=== PATIENT | female | born 1940 | race Caucasian/White ===

== ENCOUNTER 2016-07-10 18:41 | Inpatient (IN) | payer MEDICARE, OTHER ==
[~2016-07-10] VITALS: Ht 154.9 cm; Wt 63.5 kg
[2016-07-10 20:57] VITALS: BP 129/61; RESP 20
[2016-07-10] MEDS ORDERED: IPRATROPIUM (NEB) 0.5 MG/2.5 ML AMP INH PRN (21:00)
[2016-07-10] MEDS ORDERED: HYDROCODONE/APAP (5/325) TAB PO PRN (22:00)
[2016-07-10] MEDS ORDERED: AL HYDROX/MG HYDROX/SIMETH 30 ML CUP PO PRN (22:00)
[2016-07-10] MEDS ORDERED: BISACODYL 10 MG SUPP PR PRN (22:00)
[2016-07-10] MEDS ORDERED: ONDANSETRON 4 MG INJ IV PRN (22:00)
[2016-07-10] MEDS: CARISOPRODOL 350 MG TAB PO PRN (22:29)
[2016-07-10] MEDS: ACETAMINOPHEN 325 MG TAB PO PRN (22:29)
[2016-07-10] MEDS ORDERED: NALOXONE (0.4 MG/ML) INJ IV PRN (22:30)
[2016-07-10] MEDS ORDERED: MAGNESIUM HYDROXIDE 30ML CUP PO PRN (22:30)
[2016-07-10] MEDS ORDERED: CEPASTAT LOZENGE MT PRN (22:30)
[2016-07-10] MEDS: ATORVASTATIN 20 MG TAB PO SCH (22:35)
[2016-07-10] MEDS: DOCUSATE SODIUM 100 MG CAP PO SCH (22:35)
[2016-07-10] MEDS: METOPROLOL (XL) 50 MG TAB PO SCH (22:36)
[2016-07-10] MEDS ORDERED: VALSARTAN 160 MG TAB PO PRN (23:00)
[2016-07-10] MEDS ORDERED: PHENOL 1.4% SOLN 180 ML BTL MT PRN (23:00)
[2016-07-10] MEDS ORDERED: SENNA TAB PO PRN (23:00)
[2016-07-11 01:34] LABS: ADD UMIC YES; URINE BILIRUBIN (Dip) NEGATIVE (NEGATIVE); URINE BLOOD (Dip) TRACE (NEGATIVE); URINE COLOR LT. YELLOW (YELLOW); URINE GLUCOSE (Dip) NEGATIVE (NEGATIVE); URINE KETONES (Dip) NEGATIVE (NEGATIVE); URINE LEUKOCYTE ESTERASE (Dip) NEGATIVE (NEGATIVE); URINE NITRITE (Dip) NEGATIVE (NEGATIVE); URINE TOTAL PROTEIN (Dip) NEGATIVE (NEGATIVE); URINE UROBILINOGEN (Dip) 0.2 E.U./dL (0.1-1.0)
[2016-07-11 02:08] LABS: BACTERIA,URINE OCCASIONAL; SQUAMOUS EPITHELIAL CELL,UR FEW; URINE RBCS 0-2 /HPF (0)
[2016-07-11] MEDS: PANTOPRAZOLE (EC) 40 MG TAB PO SCH (05:51)
[2016-07-11 05:55] VITALS: Ht 154.9 cm; Wt 63.5 kg
[2016-07-11 06:28] LABS: ADD SCAN DIFF NO
[2016-07-11 06:34] LABS: BASOPHILS % 0.4 % (0.0-2.0); EOSINOPHILS # 0.2 10^3/ul (0.0-0.5); EOSINOPHILS % 2.2 % (0.0-7.0); HEMATOCRIT 24.4 % (37.0-47.0); HEMOGLOBIN 7.9 g/dl (12.0-16.0); LYMPHOCYTES # 1.7 10^3/ul (0.8-2.9); LYMPHOCYTES % 21.7 % (15.0-51.0); MEAN CORPUSCULAR HGB CONC 32.4 g/dl (32.0-37.0); MEAN CORPUSCULAR VOLUME 95.7 fl (82.0-101.0); MEAN PLATELET VOLUME 9.9 fl (7.4-10.4); MONOCYTE # 0.9 10^3/ul (0.3-0.9); MONOCYTES % 11.2 % (0.0-11.0); NEUTROPHIL # 4.9 10^3/ul (1.6-7.5); NEUTROPHILS % 63.7 % (39.0-77.0); PLATELET COUNT 206 10^3/UL (140-415); RED BLOOD COUNT 2.55 10^6/ul (4.20-5.40); RED CELL DISTRIBUTION WIDTH 12.5 % (11.5-14.5); WHITE BLOOD COUNT 7.7 10^3/ul (4.8-10.8)
[2016-07-11 06:52] LABS: ALBUMIN 3.1 g/dl (3.3-4.9)
[2016-07-11 06:55] LABS: BILIRUBIN,INDIRECT 0.2 mg/dl (0-1.1); BILIRUBIN,TOTAL 0.2 mg/dl (0.2-1.3); CREATININE 0.94 mg/dl (0.44-1.00)
[2016-07-11 06:56] LABS: ALBUMIN/GLOBULIN RATIO 1.19; CALCIUM 8.6 mg/dl (8.4-10.2); TOTAL PROTEIN 5.7 g/dl (6.1-8.1)
[2016-07-11 07:56] VITALS: BP 122/59; RESP 18
[2016-07-11] MEDS: FERROUS SULFATE (EC) 325 MG TAB PO SCH (08:47)
[2016-07-11] MEDS: ACETAMINOPHEN 325 MG TAB PO PRN ×3 (08:47→20:34)
[2016-07-11] MEDS: DOCUSATE SODIUM 100 MG CAP PO SCH ×2 (08:47→20:34)
[2016-07-11] MEDS ORDERED: PSYLLIUM 28% PACKET PO SCH (09:00)
--- NOTE | 2016-07-11 09:25 | HP ---
DATE OF ADMISSION: 07/10/2016 CHIEF COMPLAINT: Status post laminectomy. HISTORY OF PRESENT ILLNESS: This is a 75-year-old female with a past medical history of hypertensio n, dyslipidemia, history of premature atrial contractions, history of spinal stenosis, who was admit nandini to undergo elective laminectomy and fusion of lumbar spine. The patient has a longstanding hist ory of back pain which has progressed over time. The patient's pain is known to be intractable with radiation to both legs, with claudication. The patient has had prior history of back surgery and h ardware placement. Patient, however, has failed conservative management. As a result she was seen by her outpatient physician, Dr. Dow, and was found to have significant spinal stenosis at L2-L3 a nd L3-L4. The patient also had epidural fibrosis. The patient underwent surgical laminectomy on at [facility] in [place]. The patient's postoperative course was compl icated with an episode of hypertension, supraventricular tachycardia, and premature atrial contracti ons. The patient was clinically managed and stabilized. The patient, however, suffered a decline i n functional mobility from premorbid status and as a result was transferred over to [facility] acute rehab for continued care. Upon my evaluation of the patient at this time, she is currently stable. Denies any fever, chills, nausea, vomiting. Patient complains of some mild leg pain, but otherwise no acute distress. PAST MEDICAL HISTORY: As stated above. History of hypertension, dyslipidemia, chronic back pain. PAST SURGICAL HISTORY: History of previous spinal surgery, status post laminectomy at L2-3. FAMILY HISTORY: No family history of kidney disease or heart disease. SOCIAL HISTORY: She does not do drugs. ALLERGIES: THE PATIENT IS ALLERGIC TO BLUE SEAFOOD. OUTPATIENT MEDICATIONS: Reviewed and reconciled. REVIEW OF SYSTEMS: A 14-point review of systems was conducted. Pertinent positives in HPI, otherwi se negative. PHYSICAL EXAMINATION: VITAL SIGNS: Blood pressure 120/59, respirations 19, pulse 101, temperature 98.1. HEENT: Head is normocephalic. NECK: Supple. HEART: Regular rate with positive PVCs. LUNGS: Show diminished breath sounds at base, otherwise clear. ABDOMEN: Soft, nontender to palpation, no rebound or guarding. EXTREMITIES: Negative for clubbing or cyanosis, no edema. DERMATOLOGIC: No rashes. MUSCULOSKELETAL: No joint effusions. NEUROLOGIC: No focal deficits. LABORATORY DATA: Shows a BMP within normal limits. Albumin 3.1, white count 7.7, hemoglobin 7.9, h ematocrit 24.4, and platelet count 206,000. Urinalysis is bland. ASSESSMENT AND PLAN: This is a 75-year-old female who presents with: 1. Spinal stenosis, status post laminectomy with spinal fusion at L2-L3, L3-L4. The patient is cur rently clinically stable. Plan at this point is to continue physical therapy, continue pain control . Will follow up with outpatient orthopedist. 2. Hypertension. Continue current blood pressure regimen. 3. History of paroxysmal atrial tachycardia. Continue metoprolol, monitor closely. Consider cardi ology evaluation. 4. Dyslipidemia. Continue statin therapy. 5. Pain syndrome. Continue current pain regimen. 6. Anemia with possible iron deficiency. The patient has hemoglobin of 7.9. Plan is to check an i leelee panel, ferritin level. Continue ferrous sulfate. There is no evidence of gastrointestinal blee d. We will monitor closely. No indication for blood transfusion at this time. 7. Gastrointestinal and deep venous thrombosis prophylaxis. Continue proton pump inhibitor and seq uential leg squeezers. Please note, I spent up to 25 minutes in mwns-ja-aiff time with this patient and discussing code johanna suazo. The patient is FULL CODE. Dictated By: LUCIAN BOLTON/ILIANA Conf#: [id number] DID#: [id number]
[2016-07-11 13:09] LABS: IRON 22 ug/dl (35-150)
--- NOTE | 2016-07-11 13:16 | CONS ---
DATE OF ADMISSION: 07/10/2016 DATE OF CONSULTATION: 07/11/2016 TYPE OF CONSULTATION: Rehabilitation post-admission physician evaluation REHABILITATION IMPAIRMENT CATEGORY: Lumbar spinal stenosis with spondylolisthesis and epidural fibr osis status post decompressive laminectomy. ACTIVE COMORBIDITIES: 1. Hypertension. 2. Episode of hypotension. 3. Acute pain syndrome. 4. Impairments in self-care and mobility. HISTORY OF PRESENT ILLNESS: The patient is a very pleasant 75-year-old female with a history of spi nal stenosis with spondylolisthesis an epidural fibrosis, who had been noting increasing back pain r adiating despite conservative measures. The patient does have a history of prior back surgery. Due to the fact the patient has failed conservative measures, the patient underwent decompressive sherri ectomy and fusion on 07/05/2016. The patient's hospital course has been notable for episode of hypo tension, supraventricular tachycardia, and significant impairments in self-care and mobility as comp ared to baseline. The patient has been cleared to [facility]. FUNCTIONAL HISTORY: Prior to recent events, she was independent in self-care tasks and mobility. C urrently, she requires minimal assist for self-care and mobility tasks. I have reviewed the preadmission screen and the patient's current functional status is consistent wi th the preadmission screen. SOCIAL HISTORY: The patient lives at home and hopes to return there upon discharge. PAST MEDICAL HISTORY: 1. Hypertension. 2. Hyperlipidemia. 3. History of previous back surgery. CURRENT MEDICATIONS: 1. Lipitor 20 mg p.o. at bedtime. 2. Colace 100 mg p.o. b.i.d. 3. Ferrous sulfate 325 p.o. daily. 4. Metoprolol 50 mg p.o. at bedtime. 5. Protonix 40 mg p.o. before meals. 6. [place] p.r.n. 7. Atrovent p.r.n. 8. Senokot p.r.n. 9. Soma p.r.n. ALLERGIES: NO KNOWN DRUG ALLERGIES. PHYSICAL EXAMINATION: VITAL SIGNS: The patient is currently afebrile with stable vital signs. HEENT: Extraocular motions are intact. Oropharynx clear. NECK: Supple. LUNGS: Clear anteriorly. CARDIAC: S1, S2. ABDOMEN: Soft, nontender, positive bowel sounds. NEUROLOGIC: She is awake, alert and oriented x3. She will follow simple 1-step commands. Cranial nerves are grossly intact. She has good strength in bilateral upper extremity and bilateral lower e xtremity. She does have some impairments in dynamic balance. PLAN: The patient has been admitted for comprehensive interdisciplinary acute rehab and is anticipa nandini to tolerate 3 hours of daily therapy in divided doses for at least 5/7 days a week. The treatme nt plan will include: 1. Physical therapy to focus on bed mobility, transfers, and household ambulation with the goal for patient to reach a modified independent level. 2. Occupational therapy to focus on hygiene, grooming, dressing, bathing, and toileting activities with goal of having patient reach a modified independent level. 3. Rehabilitation nursing for carryover of therapeutic interventions, the goal of continent of martha l and bladder, and the goal of pain adequately managed on oral medications. ESTIMATED LENGTH OF STAY: 7 days. DISPOSITION GOAL: Home. REHABILITATION BARRIER: Pain. INTERVENTION FOR BARRIER: Comprehensive interdisciplinary approach. I acknowledge that I performed a full physical examination on this patient within 24 hours of admiss ion, I believe the patient is a good candidate for comprehensive interdisciplinary rehab care and is anticipated to make reasonable goals in a reasonable period of time as outlined above. Dictated By: DANIELE PIEDRA/ILIANA Conf#: [id number] DID#: [id number]
[2016-07-11 13:19] LABS: TOTAL IRON BINDING CAPACITY 227 ug/dl (241-421)
[2016-07-11 19:16] VITALS: BP 111/56; RESP 20
[2016-07-11] MEDS: ATORVASTATIN 20 MG TAB PO SCH (20:34)
[2016-07-11] MEDS: CARISOPRODOL 350 MG TAB PO PRN (20:34)
[2016-07-11] MEDS: METOPROLOL (XL) 50 MG TAB PO SCH (20:35)
[2016-07-11] MEDS: PSYLLIUM 28% PACKET PO SCH (20:40)
[2016-07-12 03:31] VITALS: BP 135/64; PULSE 99
[2016-07-12] MEDS: PANTOPRAZOLE (EC) 40 MG TAB PO SCH (06:50)
[2016-07-12 07:27] VITALS: BP 121/57; RESP 18
[2016-07-12] MEDS: ACETAMINOPHEN 325 MG TAB PO PRN ×3 (08:34→20:34)
[2016-07-12] MEDS: FERROUS SULFATE (EC) 325 MG TAB PO SCH (08:34)
[2016-07-12] MEDS: DOCUSATE SODIUM 100 MG CAP PO SCH ×2 (08:34→20:34)
--- NOTE | 2016-07-12 09:34 | PN ---
DATE: 07/12/2016 SUBJECTIVE: The patient is stable, no acute events overnight. No fevers, chills, nausea, vomiting. OBJECTIVE: VITAL SIGNS: Blood pressure is 121/57, respirations 18, pulse 89, temperature 99.0. HEENT: Head is normocephalic. NECK: Supple. HEART: Regular rate. LUNGS: Show diminished breath sounds at the base, otherwise clear. ABDOMEN: Soft, nontender to palpation, no rebound or guarding. EXTREMITIES: Negative for clubbing, cyanosis, no edema. DERMATOLOGIC: No rashes. MUSCULOSKELETAL: No joint effusions. NEUROLOGIC: No change in exam. MEDICATIONS: The patient's medications have been reviewed. LABORATORY DATA: Currently pending. Iron panel shows iron saturations of 10%. ASSESSMENT AND PLAN: 1. Spinal stenosis status post laminectomy with spinal fusion, L2-L3. The patient is currently sta ble. Continue physical therapy, pain control. 2. Hypertension. Continue current blood pressure regimen. 3. History of paroxysmal atrial tachycardia. Continue metoprolol. 4. History of dyslipidemia. Continue statin therapy. 5. Anemia with iron deficiency. Continue ferrous sulfate. Hemoglobin levels have been stable. 6. Pain syndrome. Continue current pain regimen. 7. Gastrointestinal and deep venous thrombosis prophylaxis. Continue proton pump inhibitor and seq uential leg squeezers. Dictated By: LUCIAN BOLTON/ILIANA Conf#: [id number] DID#: [id number]
[2016-07-12 10:39] LABS: ADD SCAN DIFF NO
[2016-07-12 10:55] LABS: BASOPHILS % 0.4 % (0.0-2.0); EOSINOPHILS # 0.1 10^3/ul (0.0-0.5); EOSINOPHILS % 1.3 % (0.0-7.0); HEMATOCRIT 25.7 % (37.0-47.0); HEMOGLOBIN 8.6 g/dl (12.0-16.0); LYMPHOCYTES # 1.3 10^3/ul (0.8-2.9); LYMPHOCYTES % 11.8 % (15.0-51.0); MEAN CORPUSCULAR HEMOGLOBIN 32.1 pg (29.0-33.0); MEAN CORPUSCULAR HGB CONC 33.5 g/dl (32.0-37.0); MEAN CORPUSCULAR VOLUME 95.9 fl (82.0-101.0); MEAN PLATELET VOLUME 10.1 fl (7.4-10.4); MONOCYTE # 1.2 10^3/ul (0.3-0.9); MONOCYTES % 10.9 % (0.0-11.0); NEUTROPHILS % 74.6 % (39.0-77.0); PLATELET COUNT 284 10^3/UL (140-415); RED BLOOD COUNT 2.68 10^6/ul (4.20-5.40); RED CELL DISTRIBUTION WIDTH 12.7 % (11.5-14.5); WHITE BLOOD COUNT 10.7 10^3/ul (4.8-10.8)
--- NOTE | 2016-07-12 12:20 | CONS ---
Date/Time of Note Date/Time of Note DATE: 07/12/16 TIME: 12:20 Consult Date/Type/Reason Admit Date/Time Jul 10, 2016 at 20:34 Initial Consult Date Subjective Comfortable Objective pulm-cta sba ambulation Vital Signs Date Time Temp Pulse Resp B/P Pulse Ox O2 Delivery O2 Flow Rate FiO2 07/12/16 07:27 99.0 89 18 121/57 96 Intake and Output 07/11/16 07/11/16 07/12/16 15:00 23:00 07:00 Intake Total 720 ml 840 ml 600 ml Output Total 200 ml Balance 520 ml 840 ml 600 ml Results/Medications Result Diagram: 07/12/16 1010 07/11/16 0620 Results 24 hrs Laboratory Tests Test 07/12/16 10:10 Basophils # 0.0 Basophils % 0.4 Eosinophils # 0.1 Eosinophils % 1.3 Hematocrit 25.7 L Hemoglobin 8.6 L Lymphocytes # 1.3 Lymphocytes % 11.8 L Mean Corpuscular Hemoglobin 32.1 Mean Corpuscular Hemoglobin Concent 33.5 Mean Corpuscular Volume 95.9 Mean Platelet Volume 10.1 Monocytes # 1.2 H Monocytes % 10.9 Neutrophils # 8.0 H Neutrophils % 74.6 Nucleated Red Blood Cells # 0.0 Nucleated Red Blood Cells % 0.0 Platelet Count 284 # Red Blood Count 2.68 L Red Cell Distribution Width 12.7 White Blood Count 10.7 # Medications Current Medications Carisoprodol (Soma) 350 mg Q8H PRN PO PAIN Last administered on 07/11/16 20:34 ; Admin Dose 350 MG; Start 07/10/16 at 22:00 Acetaminophen/ Hydrocodone Bitart ([place] (5/325)) 1 tab Q3H PRN PO MODERATE PAIN; Start 07/10/16 at 22:00 Acetaminophen (Tylenol Tab) 650 mg QID PRN PO PAIN AND OR ELEVATED TEMP Last administered on 07/12/16 08:34; Admin Dose 650 MG; Start 07/10/16 at 22:00 Atorvastatin Calcium (Lipitor) 20 mg DAILY@21 PO Last administered on 07/11/16 20:34; Admin Dose 20 MG; Start 07/10/16 at 22:21 Docusate Sodium (Colace) 100 mg BID PO Last administered on 07/12/16 08:34; Admin Dose 100 MG; Start 07/10/16 at 22:21 Ferrous Sulfate (Ferrous Sulfate (Ec)) 325 mg DAILY PO Last administered on 07/12 08:34; Admin Dose 325 MG; Start 07/11/16 at 09:00 Metoprolol Succinate (Toprol Xl) 50 mg QHS PO Last administered on 07/11/16 20: 35; Admin Dose 50 MG; Start 07/10/16 at 22:22 Pantoprazole (Protonix Tab) 40 mg DAILY@06 PO Last administered on 07/12/16 06: 50; Admin Dose 40 MG; Start 07/11/16 at 06:00 Al Hydrox/Mg Hydrox/Simethicone (Mag-Al Plus) 30 ml Q6H PRN PO INDIGESTION/ HEARTBURN; Start 07/10/16 at 22:00 Phenol (Cepastat Lozenge) 1 lozenge Q2H PRN [place] SORE THROAT; Start 07/10/16 at 22 :30 Bisacodyl (Dulcolax Supp) 10 mg DAILY PRN [place] CONSTIPATION; Start 07/10/16 at 22: 00 Magnesium Hydroxide (Milk Of Mag) 30 ml QHS PRN PO CONSTIPATION; Start 07/10/16 at 22:30 Naloxone HCl (Narcan) 0.4 mg PRN PRN IV DECREASED REPIRATORY RATE; Start at 22:30 Ondansetron HCl (Zofran Inj) 4 mg Q4H PRN IV NAUSEA AND/OR VOMITING; Start 07/10 at 22:00 Phenol (Chloraseptic Throat [place]) 2 spray Q3H PRN [place] SORE THROAT; Start at 23:00 Senna (Senokot) 1 tab BID PRN PO CONSTIPATION; Start 07/10/16 at 23:00 Valsartan (Diovan) 160 mg DAILY PRN PO SBP > 140; Start 07/10/16 at 23:00 Psyllium Hydrophilic Mucilloid (Metamucil) 1 pkt QHS PO Last administered on 20:40; Admin Dose 1 PKT; Start 07/11/16 at 21:00 Assessment/Plan Additional Assessment/Plan rehab- Lumbar spinal stenosis with spondylolisthesis and epidural fibrosis status post decompressive laminectomy. Tolerating rehab well Hypertension. Episode of hypotension. Acute pain syndrome-improved DANIELE IBARRA MD Jul 12, 2016 12:20
[2016-07-12 20:25] VITALS: BP 126/58; RESP 18
[2016-07-12] MEDS: ATORVASTATIN 20 MG TAB PO SCH (20:34)
[2016-07-12] MEDS: CARISOPRODOL 350 MG TAB PO PRN (20:34)
[2016-07-12] MEDS: PSYLLIUM 28% PACKET PO SCH (20:34)
[2016-07-12] MEDS: METOPROLOL (XL) 50 MG TAB PO SCH (20:40)
[2016-07-13] MEDS: PANTOPRAZOLE (EC) 40 MG TAB PO SCH (06:50)
[2016-07-13] MEDS: DOCUSATE SODIUM 100 MG CAP PO SCH ×2 (09:02→20:11)
[2016-07-13] MEDS: ACETAMINOPHEN 325 MG TAB PO PRN ×3 (09:02→20:11)
[2016-07-13] MEDS: FERROUS SULFATE (EC) 325 MG TAB PO SCH (09:02)
--- NOTE | 2016-07-13 10:00 | PN ---
DATE: 07/13/2016 SUBJECTIVE: The patient is stable, no acute events overnight. No fevers, chills, nausea, vomiting. OBJECTIVE: VITAL SIGNS: Blood pressure 126/58, respirations 18, pulse 70, temperature 98.5. HEENT: Head is normocephalic. NECK: Supple. HEART: Regular rate. LUNGS: Show diminished breath sounds at the bases. ABDOMEN: Soft, nontender to palpation. No rebound or guarding. EXTREMITIES: Negative for clubbing, cyanosis. No edema. DERMATOLOGIC: No rashes. MUSCULOSKELETAL: No joint effusions. NEUROLOGIC: No change in exam. LABORATORY DATA: Shows a white count 10.7, hemoglobin 9.6, hematocrit 25.7, platelet count 284. Th e patient's urinalysis shows gram-negative rods of 10,000 to 20,000 colony-forming units. ASSESSMENT AND PLAN: 1. Spinal stenosis, status post laminectomy with fusion at L2 to L3. The patient is currently stab le. Continue physical therapy, pain control, continue supportive brace. 2. Hypertension. Continue current blood pressure regimen. 3. History of paroxysmal atrial tachycardia. The patient is currently in sinus rhythm. Continue m etoprolol. 4. History of dyslipidemia. Continue statin therapy. 5. Anemia with iron deficiency. Continue ferrous sulfate. Hemoglobin levels are improving. 6. Pain syndrome. Continue current pain regimen. 7. Gastrointestinal and deep venous thrombosis prophylaxis. Continue proton pump inhibitor and seq uential leg squeezers. Dictated By: LUCIAN BOLTON/ILIANA Conf#: [id number] DID#: [id number]
--- NOTE | 2016-07-13 12:00 | CONS ---
Date/Time of Note Date/Time of Note DATE: 07/13/16 TIME: 11:59 Consult Date/Type/Reason Admit Date/Time Jul 10, 2016 at 20:34 Subjective feels much better Objective pulm-cta abd-soft amb - sba Vital Signs Date Time Temp Pulse Resp B/P Pulse Ox O2 Delivery O2 Flow Rate FiO2 07/12/16 20:25 98.5 77 18 126/58 95 Intake and Output 07/12/16 07/12/16 07/13/16 15:00 23:00 07:00 Intake Total 720 ml 1080 ml 400 ml Balance 720 ml 1080 ml 400 ml Results/Medications Result Diagram: 07/12/16 1010 07/11/16 0620 Medications Current Medications Carisoprodol (Soma) 350 mg Q8H PRN PO PAIN Last administered on 07/12/16 20:34 ; Admin Dose 350 MG; Start 07/10/16 at 22:00 Acetaminophen/ Hydrocodone Bitart ([place] (5/325)) 1 tab Q3H PRN PO MODERATE PAIN; Start 07/10/16 at 22:00 Acetaminophen (Tylenol Tab) 650 mg QID PRN PO PAIN AND OR ELEVATED TEMP Last administered on 07/13/16 09:02; Admin Dose 650 MG; Start 07/10/16 at 22:00 Atorvastatin Calcium (Lipitor) 20 mg DAILY@21 PO Last administered on 07/12/16 20:34; Admin Dose 20 MG; Start 07/10/16 at 22:21 Docusate Sodium (Colace) 100 mg BID PO Last administered on 07/13/16 09:02; Admin Dose 100 MG; Start 07/10/16 at 22:21 Ferrous Sulfate (Ferrous Sulfate (Ec)) 325 mg DAILY PO Last administered on 07/13 09:02; Admin Dose 325 MG; Start 07/11/16 at 09:00 Metoprolol Succinate (Toprol Xl) 50 mg QHS PO Last administered on 07/12/16 20: 40; Admin Dose 50 MG; Start 07/10/16 at 22:22 Pantoprazole (Protonix Tab) 40 mg DAILY@06 PO Last administered on 07/13/16 06: 50; Admin Dose 40 MG; Start 07/11/16 at 06:00 Al Hydrox/Mg Hydrox/Simethicone (Mag-Al Plus) 30 ml Q6H PRN PO INDIGESTION/ HEARTBURN; Start 07/10/16 at 22:00 Phenol (Cepastat Lozenge) 1 lozenge Q2H PRN [place] SORE THROAT; Start 07/10/16 at 22 :30 Bisacodyl (Dulcolax Supp) 10 mg DAILY PRN [place] CONSTIPATION; Start 07/10/16 at 22: 00 Magnesium Hydroxide (Milk Of Mag) 30 ml QHS PRN PO CONSTIPATION; Start 07/10/16 at 22:30 Naloxone HCl (Narcan) 0.4 mg PRN PRN IV DECREASED REPIRATORY RATE; Start at 22:30 Ondansetron HCl (Zofran Inj) 4 mg Q4H PRN IV NAUSEA AND/OR VOMITING; Start 07/10 at 22:00 Phenol (Chloraseptic Throat [place]) 2 spray Q3H PRN [place] SORE THROAT; Start at 23:00 Senna (Senokot) 1 tab BID PRN PO CONSTIPATION; Start 07/10/16 at 23:00 Valsartan (Diovan) 160 mg DAILY PRN PO SBP > 140; Start 07/10/16 at 23:00 Psyllium Hydrophilic Mucilloid (Metamucil) 1 pkt QHS PO Last administered on t 20:34; Admin Dose 1 PKT; Start 07/11/16 at 21:00 Assessment/Plan Additional Assessment/Plan rehab- Lumbar spinal stenosis with spondylolisthesis and epidural fibrosis status post decompressive laminectomy. Progressing well, anticipate dc Sunday Hypertension. Episode of hypotension. Acute pain syndrome-improved DANIELE IBARRA MD Jul 13, 2016 12:00
[2016-07-13] MEDS: ATORVASTATIN 20 MG TAB PO SCH (20:11)
[2016-07-13] MEDS: CARISOPRODOL 350 MG TAB PO PRN (20:12)
[2016-07-13] MEDS: PSYLLIUM 28% PACKET PO SCH (20:16)
[2016-07-13] MEDS: METOPROLOL (XL) 50 MG TAB PO SCH ×2 (20:17→21:04)
[2016-07-13 20:28] VITALS: BP 100/51; RESP 19
[2016-07-13 21:05] VITALS: BP 134/73; PULSE 113
[2016-07-14] MEDS: ACETAMINOPHEN 325 MG TAB PO PRN ×4 (03:00→20:53)
[2016-07-14 07:54] VITALS: BP 137/60; RESP 18
[2016-07-14] MEDS: PANTOPRAZOLE (EC) 40 MG TAB PO SCH (08:55)
[2016-07-14] MEDS: DOCUSATE SODIUM 100 MG CAP PO SCH ×2 (08:55→21:00)
[2016-07-14] MEDS: FERROUS SULFATE (EC) 325 MG TAB PO SCH (08:55)
--- NOTE | 2016-07-14 09:42 | PN ---
DATE: 07/14/2016 SUBJECTIVE: The patient is stable, no acute events overnight. The patient's pain is controlled. W orking with physical therapy. OBJECTIVE: VITAL SIGNS: Blood pressure 134/73, respirations are 18, pulse 97, temperature 98.5. HEENT: Head is normocephalic. NECK: Supple. HEART: Regular rate. LUNGS: Show diminished breath sounds at the base. ABDOMEN: Soft, nontender to palpation, no rebound or guarding. EXTREMITIES: Negative for clubbing, cyanosis, no edema. DERMATOLOGIC: No rashes. MUSCULOSKELETAL: No joint effusions. NEUROLOGIC: No change in exam. MEDICATIONS: The patient's medications have been reviewed. ASSESSMENT AND PLAN: 1. Spinal stenosis. The patient is status post laminectomy. Currently stable. Continue PT, OT. Continue pain control. 2. Hypertension. Continue current blood pressure regimen. 3. Paroxysmal tachycardia, currently in sinus rhythm. Continue metoprolol. 4. Dyslipidemia. Continue statin therapy. 5. Anemia of iron deficiency. Continue ferrous sulfate. 6. Pain syndrome. Continue current pain regimen. 7. Asymptomatic pyuria, no indication for antibiotics, continue to monitor. 8. Gastrointestinal and deep venous thrombosis prophylaxis. Continue PPIs and sequential leg squee zers. Dictated By: LUCIAN HOYT DO NR/NTS Conf#: [id number] DID#: [id number]
--- NOTE | 2016-07-14 12:03 | CONS ---
Date/Time of Note Date/Time of Note DATE: 07/14/16 TIME: 12:03 Consult Date/Type/Reason Admit Date/Time Jul 10, 2016 at 20:34 Subjective feels great Objective pulm-cta s ambulation Vital Signs Date Time Temp Pulse Resp B/P Pulse Ox O2 Delivery O2 Flow Rate FiO2 07/14/16 07:54 98.2 85 18 137/60 94 Intake and Output 07/13/16 07/13/16 07/14/16 15:00 23:00 07:00 Intake Total 1500 ml 400 ml Balance 1500 ml 400 ml Results/Medications Result Diagram: 07/12/16 1010 07/11/16 0620 Medications Current Medications Carisoprodol (Soma) 350 mg Q8H PRN PO PAIN Last administered on 07/13/16 20:12 ; Admin Dose 350 MG; Start 07/10/16 at 22:00 Acetaminophen/ Hydrocodone Bitart ([place] (5/325)) 1 tab Q3H PRN PO MODERATE PAIN; Start 07/10/16 at 22:00 Acetaminophen (Tylenol Tab) 650 mg QID PRN PO PAIN AND OR ELEVATED TEMP Last administered on 07/14/16 08:55; Admin Dose 650 MG; Start 07/10/16 at 22:00 Atorvastatin Calcium (Lipitor) 20 mg DAILY@21 PO Last administered on 07/13/16 20:11; Admin Dose 20 MG; Start 07/10/16 at 22:21 Docusate Sodium (Colace) 100 mg BID PO Last administered on 07/14/16 08:55; Admin Dose 100 MG; Start 07/10/16 at 22:21 Ferrous Sulfate (Ferrous Sulfate (Ec)) 325 mg DAILY PO Last administered on 08:55; Admin Dose 325 MG; Start 07/11/16 at 09:00 Metoprolol Succinate (Toprol Xl) 50 mg QHS PO Last administered on 07/13/16 21: 04; Admin Dose 50 MG; Start 07/10/16 at 22:22 Pantoprazole (Protonix Tab) 40 mg DAILY@06 PO Last administered on 07/14/16 08 :55; Admin Dose 40 MG; Start 07/11/16 at 06:00 Al Hydrox/Mg Hydrox/Simethicone (Mag-Al Plus) 30 ml Q6H PRN PO INDIGESTION/ HEARTBURN; Start 07/10/16 at 22:00 Phenol (Cepastat Lozenge) 1 lozenge Q2H PRN [place] SORE THROAT; Start 07/10/16 at 22 :30 Bisacodyl (Dulcolax Supp) 10 mg DAILY PRN [place] CONSTIPATION; Start 07/10/16 at 22: 00 Magnesium Hydroxide (Milk Of Mag) 30 ml QHS PRN PO CONSTIPATION; Start 07/10/16 at 22:30 Naloxone HCl (Narcan) 0.4 mg PRN PRN IV DECREASED REPIRATORY RATE; Start at 22:30 Ondansetron HCl (Zofran Inj) 4 mg Q4H PRN IV NAUSEA AND/OR VOMITING; Start 07/10 at 22:00 Phenol (Chloraseptic Throat [place]) 2 spray Q3H PRN [place] SORE THROAT; Start at 23:00 Senna (Senokot) 1 tab BID PRN PO CONSTIPATION; Start 07/10/16 at 23:00 Valsartan (Diovan) 160 mg DAILY PRN PO SBP > 140; Start 07/10/16 at 23:00 Psyllium Hydrophilic Mucilloid (Metamucil) 1 pkt QHS PO Last administered on t 20:16; Admin Dose 1 PKT; Start 07/11/16 at 21:00 Assessment/Plan Additional Assessment/Plan rehab- Lumbar spinal stenosis with spondylolisthesis and epidural fibrosis status post decompressive laminectomy. Progressing well, anticipate dc tomorrow Hypertension. Episode of hypotension. Acute pain syndrome-improved DANIELE IBARRA MD Jul 14, 2016 12:03
[2016-07-14 20:05] VITALS: BP 109/55; RESP 18
[2016-07-14] MEDS: ATORVASTATIN 20 MG TAB PO SCH (20:44)
[2016-07-14] MEDS: PSYLLIUM 28% PACKET PO SCH (20:44)
[2016-07-14] MEDS: METOPROLOL (XL) 50 MG TAB PO SCH (20:48)
[2016-07-14] MEDS: CARISOPRODOL 350 MG TAB PO PRN (20:54)
[2016-07-15 08:00] VITALS: BP 119/61; PULSE 83; RESP 18
[2016-07-15] MEDS: PANTOPRAZOLE (EC) 40 MG TAB PO SCH (08:13)
[2016-07-15] MEDS: FERROUS SULFATE (EC) 325 MG TAB PO SCH (08:13)
--- NOTE | 2016-07-15 08:13 | PN ---
DATE: 07/15/2016 SUBJECTIVE: The patient is stable, no acute events overnight. No fevers, chills, nausea, vomiting, No shortness of breath. OBJECTIVE: VITAL SIGNS: Blood pressure 109/55, respirations 18, pulse 99, temperature 98.2. HEENT: Head is normocephalic. NECK: Supple. HEART: Regular rate. LUNGS: Show diminished breath sounds at the base. ABDOMEN: Soft, nontender to palpation. No rebound or guarding. EXTREMITIES: Negative for clubbing, cyanosis, no edema. DERMATOLOGIC: No rashes. MUSCULOSKELETAL: No joint effusions. NEUROLOGIC: No change in exam. MEDICATIONS: The patient's medications are reviewed. LABORATORY DATA: Has been reviewed. No new labs. ASSESSMENT AND PLAN: 1. Spinal stenosis, status post laminectomy. The patient is currently stable. Continue PT, OT, pa in control. 2. Hypertension. Continue current blood pressure regimen. 3. Paroxysmal tachycardia. Currently in sinus rhythm. Continue metoprolol. 4. Dyslipidemia. Continue statin therapy. 5. Anemia of iron deficiency. Continue ferrous sulfate. 6. Pain syndrome. Continue current pain regimen. 7. Asymptomatic pyuria, stable. No indication for antibiotics. 8. History of deep venous thrombosis prophylaxis. Continue proton pump inhibitor and sequential le g squeezers. Dictated By: LUCIAN BOLTON/LIIANA Conf#: [id number] DID#: [id number]
[2016-07-15] MEDS: DOCUSATE SODIUM 100 MG CAP PO SCH (08:14)
[2016-07-15] MEDS: ACETAMINOPHEN 325 MG TAB PO PRN (09:23)
--- NOTE | 2016-07-18 12:38 | DS ---
DATE OF ADMISSION: 07/10/2016 DATE OF DISCHARGE: 07/15/2016 ADMISSION DIAGNOSES: 1. Lumbar spinal stenosis with spondylolisthesis and epidural fibrosis status post decompressive la minectomy. 2. Hypertension. 3. Episode of hypotension. 4. Acute pain syndrome. 5. Impairments in self-care and mobility. DISCHARGE DIAGNOSES: 1. Lumbar spinal stenosis with spondylolisthesis and epidural fibrosis status post decompressive la minectomy. 2. Hypertension. 3. Episode of hypotension. 4. Acute pain syndrome. 5. Improvements in self-care and mobility. HOSPITAL COURSE: The patient was admitted for comprehensive interdisciplinary acute rehab and made excellent functional gains during the course of the stay. The patient progressed from an initial mi nimal assist for self-care and mobility tasks and progressed to the point of modified independent fo r all areas of self-care and mobility including ambulating over 200 feet without the use of assistiv e device. The patient is being discharged home with recommendation of home health physical therapy and occupational therapy followup. DISCHARGE MEDICATIONS: Per the medication reconciliation sheet. CONDITION ON DISCHARGE: Stable. Dictated By: DANIELE PIEDRA/ILIANA Conf#: [id number] DID#: [id number]
== END 2016-07-15 10:15 | disposition home health service (06) | DRG 945 ==
LOC: VRC 20:34
PROVIDERS: ADMIT Physical Medicine & Rehabilitation; ATTEND Internal Medicine Nephrology
PROC: F07Z5FZ Bed Mobility Treatment using Assistive, Adaptive, Supportive or Protective Equipment (ICD-10-PCS; principal; 2016-07-11)
PROC: F07Z8FZ Transfer Training Treatment using Assistive, Adaptive, Supportive or Protective Equipment (ICD-10-PCS; 2016-07-11)
PROC: F07Z9FZ Gait Training/Functional Ambulation Treatment using Assistive, Adaptive, Supportive or Protective Equipment (ICD-10-PCS; 2016-07-11)
PROC: F08Z2FZ Grooming/Personal Hygiene Treatment using Assistive, Adaptive, Supportive or Protective Equipment (ICD-10-PCS; 2016-07-11)
PROC: F08Z1FZ Dressing Techniques Treatment using Assistive, Adaptive, Supportive or Protective Equipment (ICD-10-PCS; 2016-07-11)
PROC: F08Z0FZ Bathing/Showering Techniques Treatment using Assistive, Adaptive, Supportive or Protective Equipment (ICD-10-PCS; 2016-07-11)
DX: G89.18 Other acute postprocedural pain (principal); I47.1 Supraventricular tachycardia; I95.81 Postprocedural hypotension; Z47.89 Encounter for other orthopedic aftercare; I10 Essential (primary) hypertension; E78.5 Hyperlipidemia, unspecified; D50.9 Iron deficiency anemia, unspecified; Z48.89 Encounter for other specified surgical aftercare; Z98.1 Arthrodesis status
CPT/HCPCS: 80053; 81001; 81003; 82728; 83540; 85025; 87081; 87086; 95852; 97110; 97112; 97116; 97150; 97161; 97165; 97530; 97535